=== PATIENT | female | born 1970 | race Caucasian/White ===

== ENCOUNTER 2019-11-06 13:58 | Emergency (ER) | payer MEDICAID ==
[~2019-11-06] VITALS: Ht 160 cm; Wt 81.6 kg
[2019-11-06 14:15] VITALS: BP 150/89
[2019-11-06] MEDS ORDERED: ACETAMINOPHEN 500MG TABLET PO NR (16:00)
== END 2019-11-06 16:16 | disposition home or self-care (01) ==
LOC: ER 13:58
DX: Z03.818 Encounter for observation for suspected exposure to other biological agents ruled out (principal); B34.9 Viral infection, unspecified; E11.9 Type 2 diabetes mellitus without complications; Z98.890 Other specified postprocedural states
CPT/HCPCS: 87635; 99283